=== PATIENT | female | born 1995 | race Two or more races ===

== ENCOUNTER 2017-05-02 11:56 | Emergency (ER) | payer OTHER ==
[~2017-05-02] VITALS: Ht 167.6 cm; Wt 103.7 kg
[2017-05-02 11:57] VITALS: BP 136/81
[2017-05-02] MEDS ORDERED: BIRTH CONTROL (12:09)
[2017-05-02 12:45] LABS: HEMATOCRIT 31.8 % (34.6-47.8); HEMOGLOBIN 10.6 g/dL (11.7-16.4); WHITE BLOOD COUNT 10.8 x10^3/uL (3.4-10)
[2017-05-02] MEDS ORDERED: SODIUM CHLORIDE 0.9%, 500ML IVBOLUS ONE (13:00)
[2017-05-02 13:02] LABS: ASPARTATE AMINO TRANSFERASE 20 U/L (15-37); BLOOD UREA NITROGEN 7 mg/dL (7-18); TOTAL IRON BINDING CAPACITY 344 mcg/dL (250-450)
[2017-05-02 13:16] LABS: FERRITIN 9.8 ng/mL (8-252)
== END 2017-05-02 14:03 | disposition home or self-care (01) ==
LOC: ED 13:57
DX: D50.0 Iron deficiency anemia secondary to blood loss (chronic) (principal); N83.291 Other ovarian cyst, right side
CPT/HCPCS: 36415; 76830; 80053; 82728; 83540; 83550; 84443; 84703; 85025; 85610; 85730; 86850; 86900; 86923; 96360; 99285; J7040

== ENCOUNTER → 2017-05-30 | Outpatient (CLI) | payer OTHER ==
[2017-05-28 10:05] LABS: HEMATOCRIT 32.4 % (34.6-47.8); HEMOGLOBIN 10.4 g/dL (11.7-16.4); WHITE BLOOD COUNT 5.7 x10^3/uL (3.4-10)
[~2017-05-30] VITALS: Ht 167.6 cm; Wt 100.9 kg
[~2017-05-30] MED LIST: BIRTH CONTROL; IRON PO; MULT-758 PO
== END | disposition home or self-care (01) ==
LOC: STAR 07:00 → EDSTATUS 07:30
PROVIDERS: ATTEND Obstetrics & Gynecology
DX: Z01.818 Encounter for other preprocedural examination (principal); N83.201 Unspecified ovarian cyst, right side; N92.0 Excessive and frequent menstruation with regular cycle
CPT/HCPCS: 36415; 84703; 85025